=== PATIENT | female | born 1955 | race Caucasian/White ===

== ENCOUNTER 2016-12-07 14:09 | Emergency (ER) | payer BC ==
--- NOTE | 2016-12-07 15:17 | Emergency Department Record ---
History of Present Illness - General Chief complaint: Extremity Problem Stated complaint: RT KNEE PAIN Time Seen by Provider: 12/07/16 15:05 Source: Patient, RN notes reviewed Mode of Arrival: Ambulatory - History of Present Illness Initial comments: left upper and lower dental pain Onset/Timin -: Days(s) Location: Right, Knee Radiation: Proximal, Distal Severity scale (1-10): 7 Quality: Aching Consistency: Constant Improves with: Nothing, Immobilization Worsens with: Weight bearing - Related Data Home Medications Medication Instructions Recorded Confirmed Last Taken Levothyroxine Sodium [Synthroid] 125 mcg PO DAILY 12/07/16 12/07/16 1 Day Ago ~12/06/16 Lisinopril 40 mg PO DAILY 12/07/16 12/07/16 1 Day Ago ~12/06/16 Simvastatin 20 mg PO DAILY 12/07/16 12/07/16 1 Day Ago ~12/06/16 Previous Rx's Medication Instructions Recorded Penicillin V Potassium 500 mg PO QID #40 tablet 12/07/16 Tramadol HCl [Ultram] 50 mg PO Q8H #20 tab 12/07/16 Allergies Allergy/AdvReac Type Severity Reaction Status Date / Time No Known Drug Allergies Allergy Verified 12/07/16 14:57 Travel Screening - Travel/Exposure Within Last 30 Days Have you traveled within the last 30 days?: No - Travel/Exposure Within Last Year Have you traveled outside the [place] in the last year?: No - Additonal Travel Details Have you been exposed to anyone with a communicable illness?: No - Travel Symptoms Symptom Screening: None Review of Systems Reviewed: No additional complaints except as noted below Constitutional: Reports: As per HPI. Denies: Chills, Fever, Malaise, Night sweats, Weakness, Weight change Eyes: Reports: As per HPI. Denies: Eye discharge, Eye pain, Photophobia, Vision change ENT: Reports: As per HPI, Dental pain. Denies: Congestion, Ear pain, Epistaxis , Hearing loss, Throat pain Respiratory: Reports: As per HPI. Denies: Cough, Dyspnea, Hemoptysis, Stridor, Wheezes Cardiovascular: Reports: As per HPI. Denies: Arrhythmia, Chest pain, Dyspnea on exertion, Edema, Murmurs, Orthopnea, Palpitations, Paroxysmal nocturnal dyspnea, Rheumatic Fever, Syncope Endocrine: Reports: As per HPI. Denies: Fatigue, Heat or cold intolerance, Polydipsia, Polyuria Gastrointestinal: Reports: As per HPI. Denies: Abdominal pain, Constipation, Diarrhea, Hematemesis, Hematochezia, Melena, Nausea, Vomiting Genitourinary: Reports: As per HPI. Denies: Abnormal menses, Discharge, Dyspareunia, Dysuria, Frequency, Hematuria, Incontinence, Retention, Urgency Musculoskeletal: Reports: As per HPI. Denies: Arthralgia, Back pain, Gout, Joint swelling, Myalgia, Neck pain Skin: Reports: As per HPI. Denies: Bruising, Change in color, Change in hair/ nails, Lesions, Pruritus, Rash Neurological: Reports: As per HPI. Denies: Abnormal gait, Confusion, Headache, Numbness, Paresthesias, Seizure, Tingling, Tremors, Vertigo, Weakness Psychiatric: Reports: As per HPI. Denies: Anxiety, Auditory hallucinations, Depression, Homicidal thoughts, Suicidal thoughts, Visual hallucinations Hematological/Lymphatic: Reports: As per HPI. Denies: Anemia, Blood Clots, Easy bleeding, Easy bruising, Swollen glands Past Medical History - SOCIAL HISTORY Smoking Status: Never smoker Alcohol Use: Occasional Drug Use: None - RESPIRATORY Hx Respiratory Disorders: No - CARDIOVASCULAR Hx Hypertension: Yes Comment:: hypercholesterol - NEURO Hx Neuro Disorders: No - GI Hx GI Disorders: No - Hx Genitourinary Disorders: No - ENDOCRINE Hx Diabetes: No Hx Thyroid Disease: Yes - MUSCULOSKELETAL Hx Arthritis: Yes Comment:: left lower back with Physical therapy, fx bilateral patella - PSYCH Hx Psych Problems: No - HEMATOLOGY/ONCOLOGY Hx Hematology/Oncology Disorders: No Family Medical History Any Significant Family History?: Yes Physical Exam - General General Appearance: Alert, Oriented x3, Cooperative, No acute distress - Head Head exam: Normal inspection - Eye Eye exam: Normal appearance, PERRL Pupils: Normal accommodation - ENT ENT exam: Normal exam, Mucous membranes moist, Normal external ear exam, Normal orophraynx, TM's normal bilaterally Ear exam: Normal external inspection. negative: External canal tenderness Nasal Exam: Normal inspection. negative: Discharge, Sinus tenderness Mouth exam: Normal external inspection, Tongue normal Teeth exam: Normal inspection. negative: Dental caries Throat exam: Normal inspection. negative: Tonsillar erythema, Tonsillar exudate - Neck Neck exam: Normal inspection, Full ROM. negative: Tenderness - Respiratory Respiratory exam: Normal lung sounds bilaterally. negative: Respiratory distress - Cardiovascular Cardiovascular Exam: Regular rate, Normal rhythm, Normal heart sounds - GI/Abdominal GI/Abdominal exam: Soft, Normal bowel sounds. negative: Tenderness - Rectal Rectal exam: Deferred - exam: Deferred - Extremities Extremities exam: Normal inspection, Full ROM, Normal capillary refill. negative: Tenderness - Back Back exam: Reports: Normal inspection, Full ROM. Denies: Muscle spasm, Rash noted, Tenderness - Neurological Neurological exam: Alert, Normal gait, Oriented X3, Reflexes normal - Psychiatric Psychiatric exam: Normal affect, Normal mood - Skin Skin exam: Dry, Intact, Normal color, Warm Course Vital Signs 12/07/16 14:51 Temperature 98.8 F Pulse Rate 72 Respiratory 16 Rate Blood Pressure 133/75 Pulse Ox 97 Disposition Clinical Impression: Toothache, Dental infection Disposition: Home, Self-Care Condition: (1) Good Instructions: Toothache (ED) Additional Instructions: follow up with dentist Prescriptions: Penicillin V Potassium 500 mg PO QID #40 tablet Tramadol HCl [Ultram] 50 mg PO Q8H #20 tab Forms: Patient Portal Access Time of Disposition: 15:15 Quality - Quality Measures Quality Measures: N/A - Blood Pressure Screening Does Patient Have Any of the Following: No Blood Pressure Classification: Pre-Hypertensive BP Reading Systolic Measurement: 133 Diastolic Measurement: 75 Screening for High Blood Pressure: < Pre-Hypertensive BP, F/U Documented > [ G8950] Pre-Hypertensive Follow-up Interventions: Referral to alternative/primary care provider.
--- NOTE | 2016-12-07 15:20 | Emergency Department Record ---
History of Present Illness - General Chief complaint: Extremity Problem Stated complaint: RT KNEE PAIN Time Seen by Provider: 12/07/16 15:05 Source: Patient, RN notes reviewed Mode of Arrival: Ambulatory - History of Present Illness Initial comments: ignore the first chart on this patient she doesn't have dental pain and that is information for another patient. I informed patient about the computer chart error and not to take the penicillin script at [email or web address] which is closed on thursday. Two days ago patient strained her right knee opening a window with severe pain. and still painful. No swelling and pain is on the medial side of knee. Onset/Timin -: Days(s) Location: Right, Knee Radiation: Proximal, Distal Severity scale (1-10): 7 Quality: Aching Consistency: Constant Improves with: Nothing, Immobilization Worsens with: Weight bearing - Related Data Home Medications Medication Instructions Recorded Confirmed Last Taken Levothyroxine Sodium [Synthroid] 125 mcg PO DAILY 12/07/16 12/07/16 1 Day Ago ~12/06/16 Lisinopril 40 mg PO DAILY 12/07/16 12/07/16 1 Day Ago ~12/06/16 Simvastatin 20 mg PO DAILY 12/07/16 12/07/16 1 Day Ago ~12/06/16 Previous Rx's Medication Instructions Recorded Hydrocodone/Acetaminophen [Wing 1 tab PO Q6H PRN #20 tab 12/07/16 5mg/325mg] Allergies Allergy/AdvReac Type Severity Reaction Status Date / Time No Known Drug Allergies Allergy Verified 12/07/16 14:57 Travel Screening - Travel/Exposure Within Last 30 Days Have you traveled within the last 30 days?: No - Travel/Exposure Within Last Year Have you traveled outside the [place] in the last year?: No - Additonal Travel Details Have you been exposed to anyone with a communicable illness?: No - Travel Symptoms Symptom Screening: None Review of Systems Constitutional: Reports: As per HPI. Denies: Chills, Fever, Malaise, Night sweats, Weakness, Weight change Eyes: Reports: As per HPI. Denies: Eye discharge, Eye pain, Photophobia, Vision change ENT: Reports: As per HPI. Denies: Congestion, Dental pain, Ear pain, Epistaxis , Hearing loss, Throat pain Respiratory: Reports: As per HPI. Denies: Cough, Dyspnea, Hemoptysis, Stridor, Wheezes Cardiovascular: Reports: As per HPI. Denies: Arrhythmia, Chest pain, Dyspnea on exertion, Edema, Murmurs, Orthopnea, Palpitations, Paroxysmal nocturnal dyspnea, Rheumatic Fever, Syncope Endocrine: Reports: As per HPI. Denies: Fatigue, Heat or cold intolerance, Polydipsia, Polyuria Gastrointestinal: Reports: As per HPI. Denies: Abdominal pain, Constipation, Diarrhea, Hematemesis, Hematochezia, Melena, Nausea, Vomiting Genitourinary: Reports: As per HPI. Denies: Abnormal menses, Discharge, Dyspareunia, Dysuria, Frequency, Hematuria, Incontinence, Retention, Urgency Musculoskeletal: Reports: As per HPI, Arthralgia. Denies: Back pain, Gout, Joint swelling, Myalgia, Neck pain Skin: Reports: As per HPI. Denies: Bruising, Change in color, Change in hair/ nails, Lesions, Pruritus, Rash Neurological: Reports: As per HPI. Denies: Abnormal gait, Confusion, Headache, Numbness, Paresthesias, Seizure, Tingling, Tremors, Vertigo, Weakness Psychiatric: Reports: As per HPI. Denies: Anxiety, Auditory hallucinations, Depression, Homicidal thoughts, Suicidal thoughts, Visual hallucinations Hematological/Lymphatic: Reports: As per HPI. Denies: Anemia, Blood Clots, Easy bleeding, Easy bruising, Swollen glands Past Medical History - SOCIAL HISTORY Smoking Status: Never smoker Alcohol Use: Occasional Drug Use: None - RESPIRATORY Hx Respiratory Disorders: No - CARDIOVASCULAR Hx Hypertension: Yes Comment:: hypercholesterol - NEURO Hx Neuro Disorders: No - GI Hx GI Disorders: No - Hx Genitourinary Disorders: No - ENDOCRINE Hx Diabetes: No Hx Thyroid Disease: Yes - MUSCULOSKELETAL Hx Arthritis: Yes Comment:: left lower back with Physical therapy, fx bilateral patella - PSYCH Hx Psych Problems: No - HEMATOLOGY/ONCOLOGY Hx Hematology/Oncology Disorders: No Family Medical History Any Significant Family History?: Yes Physical Exam - General General Appearance: Alert, Oriented x3, Cooperative, No acute distress - Head Head exam: Normal inspection - Eye Eye exam: Normal appearance, PERRL Pupils: Normal accommodation - ENT ENT exam: Normal exam, Mucous membranes moist, Normal external ear exam, Normal orophraynx, TM's normal bilaterally Ear exam: Normal external inspection. negative: External canal tenderness Nasal Exam: Normal inspection. negative: Discharge, Sinus tenderness Mouth exam: Normal external inspection, Tongue normal Teeth exam: Normal inspection. negative: Dental caries Throat exam: Normal inspection. negative: Tonsillar erythema, Tonsillar exudate - Neck Neck exam: Normal inspection, Full ROM. negative: Tenderness - Respiratory Respiratory exam: Normal lung sounds bilaterally. negative: Respiratory distress - Cardiovascular Cardiovascular Exam: Regular rate, Normal rhythm, Normal heart sounds - GI/Abdominal GI/Abdominal exam: Soft, Normal bowel sounds. negative: Tenderness - Rectal Rectal exam: Deferred - exam: Deferred - Extremities Extremities exam: Normal inspection, Normal capillary refill, Tenderness ( medial right knee pain , no effussion) - Back Back exam: Reports: Normal inspection, Full ROM. Denies: Muscle spasm, Rash noted, Tenderness - Neurological Neurological exam: Alert, Normal gait, Oriented X3, Reflexes normal - Psychiatric Psychiatric exam: Normal affect, Normal mood - Skin Skin exam: Dry, Intact, Normal color, Warm Course Vital Signs 12/07/16 14:51 Temperature 98.8 F Pulse Rate 72 Respiratory 16 Rate Blood Pressure 133/75 Pulse Ox 97 Medical Decision Making - Data Complexity MDM Data: X-Ray Ordered and/or Reviewed (negative for fracture with effusion) Disposition Clinical Impression: Strain of knee and leg, right Qualifiers: Encounter type: initial encounter Qualified Code(s): S86.911A - Strain of unspecified muscle(s) and tendon(s) at lower leg level, right leg, initial encounter Disposition: Home, Self-Care Condition: (1) Good Instructions: Knee Pain (ED), Knee Immobilizer (ED) Additional Instructions: follow up with family Dr. robin motrin 800 mg three times a day which she has Prescriptions: Hydrocodone/Acetaminophen [Wing 5mg/325mg] 1 tab PO Q6H PRN #20 tab PRN Reason: Pain - General Forms: Patient Portal Access Time of Disposition: 17:17 Quality - Quality Measures Quality Measures: N/A - Blood Pressure Screening Does Patient Have Any of the Following: No, Active Dx of HTN Blood Pressure Classification: Pre-Hypertensive BP Reading Systolic Measurement: 133 Diastolic Measurement: 75 Screening for High Blood Pressure: Patient Exclusion, Hx of HTN [G9744]
--- NOTE | 2016-12-09 12:55 | RADIOLOGY REPORT ---
EXAM: RIGHT KNEE, FOUR VIEWS HISTORY: KNEE PAIN. PATIENT REPORTEDLY FELT THE KNEE BUCKLE YESTERDAY. TECHNIQUE: Four views of the right knee were obtained. Comparison: None. FINDINGS: Mild knee joint effusion. There is mild joint space narrowing and spurring within the medial tibial femoral compartment. No fracture or malalignment. IMPRESSION: 1. NO ACUTE RIGHT KNEE ABNORMALITY. 2. MILD DEGENERATIVE CHANGES MOST NOTABLY MEDIAL TIBIAL FEMORAL COMPARTMENT. SMALL KNEE JOINT EFFUSION. JOB NUMBER: [id number] MTDD
== END 2016-12-07 18:03 | disposition home or self-care (01) ==
LOC: ER 14:09
DX: S86.911A Strain of unspecified muscle(s) and tendon(s) at lower leg level, right leg, initial encounter (principal); X50.0XXA Overexertion from strenuous movement or load, initial encounter
CPT/HCPCS: 99283

== ENCOUNTER 2018-09-24 17:25 | Emergency (ER) | payer BC ==
[2018-09-24 17:58] LABS: BASO % 0.6 % (0-6); EOS % 4.8 % (0-6); GRAN % 62.3 % (47-80); HEMATOCRIT 38.9 % (35.0-47.0); HEMOGLOBIN 12.7 gm/dl (11.6-16.0); LYMPH % 26.5 % (16-45); MEAN CELL VOLUME 95.3 fl (81-97); MEAN CORPUSCULAR HEMOGLOBIN 31.1 pg (27-33); MEAN CORPUSCULAR HGB CONC 32.6 g/dl (32-36); MEAN PLATELET VOLUME 12.2 fl (7.4-10.4); MONO % 5.8 % (0-9); PLATELET COUNT 183 K/uL (130-400); RED BLOOD COUNT 4.08 M/uL (3.80-5.40); RED CELL DISTRIBUTION WIDTH 13.6 % (11.5-14.5); WHITE BLOOD COUNT W/O DIFF 6.4 K/uL (4.2-12.2)
[2018-09-24 18:06] LABS: BLOOD UREA NITROGEN 10 mg/dL (8-23); CREATININE 0.6 mg/dL (0.5-0.9); EST GLOMERULAR FILTRATION RATE > 60 mL/min; TOTAL PROTEIN 7.5 g/dL (6.6-8.7)
[2018-09-24 18:08] LABS: GLUCOSE,RANDOM 108 mg/dL (74-109)
[2018-09-24] MEDS ORDERED: POTASSIUM CHLORIDE 20 MEQ TABLET PO ONE (18:10)
--- NOTE | 2018-09-24 18:10 | Emergency Department Record ---
History of Present Illness - General Chief Complaint: Numbness Stated Complaint: facial droop Time Seen by Provider: 09/24/18 17:33 Source: Patient Mode of Arrival: Ambulatory Limitations: No limitations - History of Present Illness Initial Comments: The patient is here due to the L side of her face feeling funny today. The patient woke up this AM with her L eye twitching and not feeling normally. About an hour prior to presenting to the ER the patient noticed the L lower face was weak and she had developed a mild L facial droop. She denies any PALOMO, visual changes, voice changes, arm or leg numbness or weakness, or any balance issues. Onset/Timin -: Minutes(s) Location: Left face History of same: No Place: Home Severity: Mild Quality: Numb, Tingling, Weak - Blanchard Coma Scale Eye Response: (4) Open spontaneously Motor Response: (6) Obeys commands Verbal Response: (5) Oriented Blanchard Total: 15 - Symptoms of Stroke Onset of Symptoms Date: 09/24/18 Onset of Symptoms Time: 16:50 Symptoms of stroke: Muscle Weakness, Numbness, Weakness of Face Muscles - Related Data Home Medications: Previous Rx's Medication Instructions Recorded Prednisone [Prednisone 10Mg] 10 mg PO DAILY #33 tab 09/24/18 Allergies/Adverse Reactions: Allergies Allergy/AdvReac Type Severity Reaction Status Date / Time No Known Drug Allergies Allergy Verified 09/24/18 17:33 Travel Screening - Travel/Exposure Within Last 30 Days Have you traveled within the last 30 days?: Yes Location Detail:: [place] - Travel/Exposure Within Last Year Have you traveled outside the [place] in the last year?: No - Additonal Travel Details Have you been exposed to anyone with a communicable illness?: No - Travel Symptoms Symptom Screening: None Review of Systems Constitutional: Denies: Chills, Fever Eyes: Denies: Eye discharge ENT: Denies: Congestion Respiratory: Denies: Cough, Dyspnea Cardiovascular: Denies: Arrhythmia, Syncope Endocrine: Denies: Fatigue Gastrointestinal: Denies: Melena Genitourinary: Denies: Dysuria Musculoskeletal: Denies: Arthralgia Skin: Denies: Bruising Past Medical History - SOCIAL HISTORY Smoking Status: Never smoker Alcohol Use: Occasional Drug Use: None - RESPIRATORY Hx Respiratory Disorders: No - CARDIOVASCULAR Hx Cardio Disorders: Yes Hx Hypertension: Yes Comment:: hypercholesterol - NEURO Hx Neuro Disorders: No - GI Hx GI Disorders: No - Hx Genitourinary Disorders: No - ENDOCRINE Hx Endocrine Disorders: Yes Hx Diabetes: No Hx Thyroid Disease: Yes - MUSCULOSKELETAL Hx Arthritis: Yes Comment:: left lower back with Physical therapy, fx bilateral patella - PSYCH Hx Psych Problems: No - HEMATOLOGY/ONCOLOGY Hx Hematology/Oncology Disorders: No Family Medical History Any Significant Family History?: Yes Hx Heart Disease: Father, Mother, Brother/Sister, Grandparents Physical Exam - General General Appearance: Alert, Oriented x3, Cooperative, No acute distress - Head Head exam: Atraumatic, Normocephalic, Normal inspection - Eye Eye exam: Normal appearance, PERRL, EOMI. negative: Conjunctival injection, Periorbital swelling, Periorbital tenderness - ENT ENT exam: Other (There is L upper facial and lower facial mild weakness. The patient is not able to raise the L eyebrow equal to the R and she has a mild L facial droop. ). negative: Normal exam Mouth exam: Tongue normal Throat exam: Normal inspection. negative: Tonsillar erythema, Tonsillar exudate - Neck Neck exam: Normal inspection, Full ROM. negative: Lymphadenopathy, Meningismus, Tenderness - Respiratory Respiratory exam: Normal lung sounds bilaterally. negative: Respiratory distress - Cardiovascular Cardiovascular Exam: Regular rate, Normal rhythm, Normal heart sounds - GI/Abdominal GI/Abdominal exam: Soft, Normal bowel sounds. negative: Tenderness - Extremities Extremities exam: Normal inspection, Full ROM, Normal capillary refill. negative: Tenderness - Neurological Neurological exam: Alert, CN II-XII intact (Except for L nerve VII.), Normal gait, Oriented X3, Reflexes normal, Other (Neg Drift and Rhomberg.). negative: Abnormal gait, Altered, Motor sensory deficit (Except for facial nerve VII L side.) - Skin Skin exam: negative: Rash Course Vital Signs 09/24/18 17:26 Temperature 98.2 F Pulse Rate 73 Respiratory 20 Rate Blood Pressure 182/96 Pulse Ox 98 - Reevaluation(s) Reevaluation #1: The patient is doing OK at this time. Her L facial weakness is still present and is mild at this time. We did start the patient on oral steroids and will have her F/U with her PCP next week. 09/24/18 18:37 Medical Decision Making - Data Complexity MDM Data: Labs Ordered and/or Reviewed, X-Ray Ordered and/or Reviewed, EKG Ordered and/or Reviewed - Lab Data Result diagrams: 09/24/18 17:40 09/24/18 17:40 Lab Results 09/24/18 Range/Units 17:40 WBC 6.4 (4.2-12.2) K/uL RBC 4.08 (3.80-5.40) M/uL Hgb 12.7 (11.6-16.0) gm/dl Hct 38.9 (35.0-47.0) % MCV 95.3 (81-97) fl MCH 31.1 (27-33) pg MCHC 32.6 (32-36) g/dl RDW 13.6 (11.5-14.5) % Plt Count 183 (130-400) K/uL MPV 12.2 H (7.4-10.4) fl Gran % 62.3 (47-80) % Lymphocytes % 26.5 (16-45) % Monocytes % 5.8 (0-9) % Eosinophils % 4.8 (0-6) % Basophils % 0.6 (0-6) % Absolute Neutrophils 4.00 - EKG Data -: EKG Interpreted by Md EKG: No Acute Changes, Normal EKG (Except for prolonged GA interval.) - Radiology Data Radiology results: Report reviewed (Head CT: Neg. ) Disposition Disposition: Discharge Clinical Impression: Mckeon's palsy Disposition: Home, Self-Care Condition: (2) Stable Instructions: Mckeon Palsy (ED) Additional Instructions: Please continue your regular medicines and continue the Prednisone. Please see your family doctor in 1-2 weeks for recheck. Return to the ER for any worsening symptoms, or for any speech issues, arm or leg numbness or weakness, or any balance issues. Prescriptions: Prednisone [Prednisone 10Mg] 10 mg PO DAILY #33 tab Forms: Patient Portal Access Time of Disposition: 18:44 Quality - Quality Measures Quality Measures: N/A - Blood Pressure Screening View Details: Yes Does Patient Have Any of the Following: Active Dx of HTN Blood Pressure Classification: Hypertensive Reading Systolic Measurement: 182 Diastolic Measurement: 96 Screening for High Blood Pressure: Patient Exclusion, Hx of HTN [G9744]
[2018-09-24 18:11] LABS: ALB/GLOB RATIO 1.8 (1.1-1.8); ALBUMIN 4.8 g/dL (4.0-5.0); ALKALINE PHOSPHATASE 79 U/L (35-104); ALT/SGPT 16 U/L (<33); AST/SGOT 20 U/L (10.0-35.0)
[2018-09-24] MEDS ORDERED: PREDNISONE 20 MG TAB PO ONE (18:26)
--- NOTE | 2018-09-26 20:46 | CT SCAN REPORT ---
EXAM: CT SCAN HEAD WO CONTRAST HISTORY: LEFT FACIAL NUMBNESS, INABILITY TO WHISTLE, EYE TWITCHING. TECHNIQUE: Noncontrast CT brain. COMPARISON: None. FINDINGS: No midline shift, mass effect, or abnormal intra or extraaxial fluid collection. No cerebral edema, focal mass, or intracranial hemorrhage detected. Ventricle sizes are within normal limits. No displaced calvarial fracture detected. Visualized paranasal sinuses and mastoid air cells are clear. IMPRESSION: NO ACUTE INTRACRANIAL FINDINGS. JOB NUMBER: [id number] [facility]
== END 2018-09-24 18:53 | disposition home or self-care (01) ==
LOC: ER 17:25
DX: G51.0 Bell's palsy (principal); I10 Essential (primary) hypertension
CPT/HCPCS: 99284 ×2; 85025; 80053; 70450; 93005; 93010; J7512